=== PATIENT | female | born 2000 | race Two or more races ===

== ENCOUNTER 2023-09-12 04:34 | Inpatient (IN) | payer SELFPAY ==
[~2023-09-12] VITALS: Ht 160 cm; Wt 54.9 kg
[2023-09-12] MEDS ORDERED: LORAZEPAM INJ 2 MG/ML VIAL ONE ×2 (04:44→07:51)
[2023-09-12 05:10] LABS: BASOPHILS # (AUTO) 0.1 K/uL (0.0-0.2); BASOPHILS % (AUTO) 0.8 % (0.0-2.0); EOSINOPHILS # (AUTO) 0.1 K/uL (0.0-0.7); EOSINOPHILS % (AUTO) 1.7 % (0.0-6.0); HEMATOCRIT 30 % (33-45); HEMOGLOBIN 9.3 g/dL (11.5-14.8); LYMPHOCYTES # (AUTO) 3.8 K/uL (0.8-4.8); MEAN CORPUSCULAR HEMOGLOBIN 22 PG (26.0-33.0); MEAN CORPUSCULAR HGB CONC 31 g/dl (31.0-36.0); MEAN CORPUSCULAR VOLUME 71 fL (82-100); MONOCYTES # (AUTO) 0.5 K/uL (0.1-1.30); MONOCYTES % (AUTO) 5.8 % (2.0-12.0); NEUTROPHILS # (AUTO) 3.8 K/uL (1.8-8.9); NEUTROPHILS % (AUTO) 45.7 % (43.0-81.0); PLATELET COUNT (AUTO) 471 K/uL (150-450); RED BLOOD CELL COUNT(AUTO) 4.24 MIL/uL (4.0-5.2); RED CELL DISTRIBUTION WIDTH 17.6 % (11.5-15.0); WHITE BLOOD COUNT (AUTO) 8.3 K/uL (4.3-11.0)
[2023-09-12 05:18] LABS: PREGNANCY TEST URINE QUAL NEGATIVE (NEGATIVE)
[2023-09-12 05:23] LABS: PARTIAL THROMBOPLASTIN TIME 23.4 SEC (24.3-34.3); PROTHROMBIN TIME 10.6 SECS (9.2-11.1)
[2023-09-12 05:36] LABS: EOSINOPHILS % (MANUAL) 2 % (0-4); LYMPHOCYTES % (MANUAL) 50 % (16-48); MONOCYTES % (MANUAL) 6 % (0-11.0); NEUTROPHILS % (MANUAL) 42 (42-76); PLATELET ESTIMATE ADEQUATE
[2023-09-12 05:37] LABS: ANISOCYTOSIS 1+
[2023-09-12] MEDS: LORAZEPAM INJ 2 MG/ML VIAL IV ONE ×3 (05:37→05:45)
[2023-09-12 05:39] LABS: PHENOBARBITAL 3 ug/ml (15-39); VALPROIC ACID 2 ug/mL (50-100)
[2023-09-12] MEDS: LORAZEPAM INJ 2 MG/ML VIAL IM ONE (05:41)
[2023-09-12 05:53] LABS: PHENYTOIN (DILANTIN) < 0.5 ug/ml (10.0-20.0)
[2023-09-12 06:18] LABS: CALCIUM, SERUM 9.4 mg/dL (8.5-10.1); CARBON DIOXIDE 25 mmol/L (21-32); CHLORIDE 104 mmol/L (98-107); CREATININE 0.6 mg/dL (0.6-1.3); GLUCOSE 110 mg/dL (74-106); POTASSIUM 3.7 mmol/L (3.5-5.1); SODIUM SERUM 139 mmol/L (136-145); UREA NITROGEN, BLOOD 13 mg/dL (7-18)
[2023-09-12 06:23] LABS: AMPHETAMINE, URINE NEGATIVE (NEGATIVE); BARBITURATE, URINE NEGATIVE (NEGATIVE); BENZODIAZEPINE, URINE NEGATIVE (NEGATIVE); COCCAINE, URINE NEGATIVE (NEGATIVE); OPIATE, URINE NEGATIVE (NEGATIVE); PHENCYCLIDINE SCREEN,URINE NEGATIVE (NEGATIVE)
[2023-09-12 06:23] LABS: ALANINE AMINOTRANSFERASE 16 U/L (12-78); ALBUMIN 4.5 g/dL (3.4-5.0); ALCOHOL, BLOOD < 3 mg/dL (0-10); ALKALINE PHOSPHATASE 106 U/L (46-116); ASPARTATE AMINOTRANSFERASE 16 U/L (15-37); BILIRUBIN,DIRECT 0.1 mg/dL (0.0-0.2); BILIRUBIN,TOTAL 0.4 mg/dL (0.2-1.0); TOTAL PROTEIN, SERUM 8.7 g/dL (6.4-8.2)
[2023-09-12 06:42] LABS: CANNABINOID, URINE POSITIVE (NEGATIVE)
[2023-09-12] MEDS ORDERED: Z GUARD REMEDY 4 OZ OINT TP PRN (07:00)
[2023-09-12] MEDS ORDERED: ONDANSETRON HCL/PF 4 MG/2 ML VIAL IVP PRN (07:00)
[2023-09-12] MEDS ORDERED: ACETAMINOPHEN 650 MG/SUPP.RECT RC PRN (07:00)
[2023-09-12] MEDS ORDERED: LORAZEPAM INJ 2 MG/ML VIAL IV PRN (07:00)
[2023-09-12 08:30] VITALS: BP 100/65; TEMP 97.6; O2SAT 100
[2023-09-12] MEDS: IV NS 0.9% 1,000 ML BAG IV SCH (09:32)
[2023-09-12 10:33] VITALS: O2SAT 100
[2023-09-12 12:00] VITALS: BP 101/59; TEMP 97.5; O2SAT 100
[2023-09-12 14:55] LABS: IRON, SERUM 15 ug/dl (50-175); TOTAL IRON BINDING CAPACITY 397 ug/dl (250-450)
[2023-09-12 15:09] LABS: FERRITIN 4 ng/mL (8-388)
== END 2023-09-12 15:21 | disposition left against medical advice (07) | DRG 100 ==
LOC: ER 04:37 → TELE-TD 06:17 → TELE1 08:45
PROVIDERS: ADMIT Internal Medicine; ATTEND Internal Medicine
DX: G40.89 Other seizures (principal); G92.8 Other toxic encephalopathy; D50.9 Iron deficiency anemia, unspecified; F12.90 Cannabis use, unspecified, uncomplicated; T40.715A Adverse effect of cannabis, initial encounter; Y92.89 Other specified places as the place of occurrence of the external cause
CPT/HCPCS: 36415; 70450-TC; 71045-TC; 80048-TC; 80076-TC; 80164-TC; 80184; 80185-TC; 82728-TC; 83540-TC; 84703-TC; 85025-TC; 85730-TC; 94799-TC; A4223; G0378; G0480; J2060; J7030